=== PATIENT | male | born 1960 | race Two or more races ===

== ENCOUNTER 2017-01-30 11:41 | Inpatient (IN) | payer OTHER ==
[~2017-01-30] VITALS: Ht 160 cm; Wt 60.3 kg
[2017-01-30] MEDS ORDERED: LORazepam 2MG/ML-1ML VIAL IV ONE (12:00)
[2017-01-30] MEDS ORDERED: LEVETIRACETAM INJ 500 MG in SODIUM CHL 0.9% 100 ML IV ONE (12:00)
[2017-01-30 13:25] LABS: Basophils # (auto) 0 uL; Basophils % (auto) 1.4 % (0.0-2.0); Eosinophils # (auto) 0 uL; Eosinophils % (auto) 0.1 % (0.0-7.0); Hematocrit 35.6 % (41.0-53.0); Lymphocytes # (auto) 0.4 uL; Lymphocytes % (auto) 18.3 % (10.0-50.0); Mean Corpuscular Hemoglobin 31.1 pg (28.0-32.0); Mean Corpuscular Hgb Conc. 33.6 g/dL (32.0-36.0); Mean Corpuscular Volume 92.6 fL (80.0-100.0); Monocytes # (auto) 0.2 uL; Monocytes % (auto) 7.8 % (0.0-12.0); Neutrophils # (auto) 1.4 uL; Neutrophils % (auto) 72.4 % (37.0-80.0); Nucleated Red Blood Cells % 0.3 %; Platelet Count (auto) 156 10^3/uL (140-450); Red Blood Cells 3.84 10^6/uL (4.5-5.90); Red Cell Distribution Width 16.6 % (11.8-14.3)
[2017-01-30 13:45] LABS: Alanine Aminotransferase 34 U/L (16-61); Albumin 2.8 g/dL (3.4-5.0); Alkaline Phosphatase 139 U/L (45-117); Anion Gap 4 (5-15); Aspartate Aminotransferase 63 U/L (15-37); BUN/Creatinine Ratio 17.8; Bilirubin, Total 0.8 mg/dL (0.2-1.0); Blood Alcohol < 3.0 mg/dL (0-5); Blood Urea Nitrogen 8 mg/dL (7-18); Calcium 8.1 mg/dL (8.5-10.1); Carbon Dioxide 31 mmol/L (21-32); Chloride 102 mmol/L (98-107); GFR African American 249 mL/min; GFR Non-African American 206 mL/min; Glucose 115 mg/dL (74-106); Magnesium 2.3 mg/dL (1.6-2.6); Potassium 3.8 mmol/L (3.5-5.1); Sodium 137 mmol/L (136-145); Total Protein 8.8 g/dL (6.4-8.2)
[2017-01-30] MEDS ORDERED: MORPHINE SULF INJ 2 MG/ML SYRINGE 1ML IV PRN (14:45)
[2017-01-30] MEDS ORDERED: NITROGLYCERIN 0.4 MG SL TAB SL PRN (14:45)
[2017-01-30] MEDS ORDERED: ONDANSETRON HCL 4 MG/2 ML VIAL IV PRN (14:45)
[2017-01-30] MEDS ORDERED: FAMOTIDINE (10MG/ML) 2ML VL IV ONE (15:00)
[2017-01-30] MEDS ORDERED: PANTOPRAZOLE 40 MG/10 ML VIAL IV ONE (15:00)
[2017-01-30] MEDS ORDERED: cefTRIAXone 1GM/10ml IVPUSH 10 ML IV ONE (15:00)
[2017-01-30] MEDS ORDERED: VANCOMYCIN PER PHARMACY 0 MG IV SCH (15:00)
[2017-01-30] MEDS: SODIUM CHLORIDE 0.9% 1,000 ML IV SCH (15:31)
[2017-01-30 19:00] LABS: Alcohol, Urine < 3.0 mg/dL (0-5); Amphetamine Screen, Urine NEGATIVE (NEGATIVE); Barbiturate Scree,Urine NEGATIVE (NEGATIVE); Benzodiazephine Screen, Urine POSITIVE (NEGATIVE); Cannabinoid Screen, Urine NEGATIVE (NEGATIVE); Cocaine Screen, Urine NEGATIVE (NEGATIVE); Opiate Scree,Urine POSITIVE (NEGATIVE); Phencyclidine Screen, Urine NEGATIVE (NEGATIVE)
[2017-01-30] MEDS ORDERED: VANCOMYCIN 750 MG in SODIUM CHL 0.9% 250 ML IV SCH (20:00)
[2017-01-30 22:00] VITALS: BP 134/78
[2017-01-30] MEDS ORDERED: LEVETIRACETAM IV SCH (22:00)
[2017-01-30] MEDS ORDERED: LEVETIRACETAM INJ 500 MG in SODIUM CHL 0.9% 100 ML IV SCH (22:00)
[2017-01-30] MEDS ORDERED: SODIUM CHL 0.9% IV SCH (22:00)
[2017-01-31] MEDS: SODIUM CHLORIDE 0.9% 1,000 ML IV SCH ×2 (04:40→07:18)
[2017-01-31 05:00] VITALS: BP 149/80
[2017-01-31 06:22] LABS: Basophils # (auto) 0.1 uL; Basophils % (auto) 1.4 % (0.0-2.0); Eosinophils # (auto) 0 uL; Eosinophils % (auto) 0.1 % (0.0-7.0); Hematocrit 34.2 % (41.0-53.0); Hemoglobin 11.7 g/dL (13.5-17.5); Lymphocytes # (auto) 0.5 uL; Mean Corpuscular Hemoglobin 31.4 pg (28.0-32.0); Mean Corpuscular Hgb Conc. 34.1 g/dL (32.0-36.0); Mean Corpuscular Volume 92.1 fL (80.0-100.0); Monocytes # (auto) 0.2 uL; Monocytes % (auto) 3.7 % (0.0-12.0); Neutrophils # (auto) 3.7 uL; Neutrophils % (auto) 82.8 % (37.0-80.0); Nucleated Red Blood Cells % 0.2 %; Platelet Count (auto) 130 10^3/uL (140-450); Red Blood Cells 3.71 10^6/uL (4.5-5.90); Red Cell Distribution Width 16.7 % (11.8-14.3); White Blood Cell 4.5 10^3/uL (4.4-10.8)
[2017-01-31 06:49] LABS: Albumin 2.7 g/dL (3.4-5.0); BUN/Creatinine Ratio 29.7; Bilirubin, Total 1.2 mg/dL (0.2-1.0); Calcium 8.3 mg/dL (8.5-10.1); Potassium 3.3 mmol/L (3.5-5.1); Total Protein 8.6 g/dL (6.4-8.2)
[2017-01-31] MEDS ORDERED: LEVETIRACETAM INJ 1,000 MG in SODIUM CHL 0.9% 100 ML IV ONE ×2 (08:15→10:00)
[2017-01-31 08:34] LABS: Urine Bacteria NONE SEEN /hpf (None Seen); Urine Blood TRACE /uL (Negative); Urine Mucus FEW (None Seen); Urine Specific Gravity 1.021 (1.001-1.035); Urine WBC 1 /hpf (0 - 3)
[2017-01-31 09:00] VITALS: BP 150/84
[2017-01-31] MEDS ORDERED: VANCOMYCIN 500 MG in D5W 5% 100 ML IV SCH (09:00)
[2017-01-31] MEDS: FAMOTIDINE (10MG/ML) 2ML VL IV SCH (09:55)
[2017-01-31] MEDS: PANTOPRAZOLE 40 MG/10 ML VIAL IV SCH (09:55)
[2017-01-31] MEDS: FOLIC ACID 1 MG TAB PEG SCH (09:57)
[2017-01-31] MEDS: cefTRIAXone 1GM/10ml IVPUSH 10 ML IV SCH (12:40)
[2017-01-31 13:00] VITALS: BP 141/74
[2017-01-31] MEDS ORDERED: FOLI1TAB6 PEG (13:14)
[2017-01-31] MEDS ORDERED: LEVO50TA7 PO (13:14)
[2017-01-31] MEDS ORDERED: KEP500T PEG (13:14)
[2017-01-31 17:00] VITALS: BP 135/87
[2017-01-31] MEDS: Isosource 1.5 Cal 1 Liter GT SCH (17:16)
[2017-01-31 21:30] VITALS: BP 141/62
[2017-01-31] MEDS: SODIUM CHL 0.9% IV SCH (21:35)
[2017-01-31] MEDS: LEVETIRACETAM IV SCH (21:35)
[2017-02-01] VITALS (51 sets, daily range): BP systolic 80–177; BP diastolic 50–99
[2017-02-01] MEDS ORDERED: ETOMIDATE (2MG/ML) 20ML VIAL IV ONE (04:08)
[2017-02-01] MEDS ORDERED: SUCCINYLCHOLINE CHLORIDE 20 MG/ML 10ML VIAL IV ONE (04:08)
[2017-02-01] MEDS ORDERED: MIDAZOLAM DRIP 50 mg/50mL 50 ML IV ONE ×2 (04:25→06:35)
[2017-02-01] MEDS: MIDAZOLAM DRIP 50 mg/50mL 50 ML IV SCH ×4 (04:38→20:10)
[2017-02-01 06:43] LABS: Potassium 3.1 mmol/L (3.5-5.1)
[2017-02-01 08:02] LABS: Basophils # (auto) 0 uL; Basophils % (auto) 0.1 % (0.0-2.0); Eosinophils # (auto) 0 uL; Eosinophils % (auto) 0.1 % (0.0-7.0); Hematocrit 40.9 % (41.0-53.0); Hemoglobin 14.2 g/dL (13.5-17.5); Lymphocytes # (auto) 1.4 uL; Lymphocytes % (auto) 18.9 % (10.0-50.0); Mean Corpuscular Hemoglobin 31.6 pg (28.0-32.0); Mean Corpuscular Hgb Conc. 34.8 g/dL (32.0-36.0); Mean Corpuscular Volume 90.8 fL (80.0-100.0); Monocytes # (auto) 0.4 uL; Monocytes % (auto) 5.9 % (0.0-12.0); Neutrophils # (auto) 5.6 uL; Nucleated Red Blood Cells % 0.7 %; Platelet Count (auto) 134 10^3/uL (140-450); Red Cell Distribution Width 16.2 % (11.8-14.3); White Blood Cell 7.5 10^3/uL (4.4-10.8)
[2017-02-01] MEDS: PANTOPRAZOLE 40 MG/10 ML VIAL IV SCH (09:56)
[2017-02-01] MEDS: FOLIC ACID 1 MG TAB PEG SCH (09:57)
[2017-02-01] MEDS: FAMOTIDINE (10MG/ML) 2ML VL IV SCH (09:57)
[2017-02-01] MEDS: cefTRIAXone 1GM/10ml IVPUSH 10 ML IV SCH (09:57)
[2017-02-01] MEDS: SODIUM CHL 0.9% IV SCH ×2 (11:42→22:10)
[2017-02-01] MEDS: LEVETIRACETAM IV SCH ×2 (11:42→22:10)
[2017-02-01] MEDS ORDERED: POTASSIUM CHLORIDE 40 MEQ, LIDOCAINE 1% (LOCAL ANESTH.) 4 ML in SODIUM CHL 0.9% 100 ML IV ONE (16:15)
[2017-02-01] MEDS: LACOSAMIDE 200 mg/20ml VIAL IV SCH ×2 (16:20→23:46)
[2017-02-01] MEDS: MORPHINE SULF INJ 2 MG/ML SYRINGE 1ML IV PRN (16:23)
[2017-02-01] MEDS: SODIUM CHLORIDE 0.9% 1,000 ML IV SCH (16:38)
[2017-02-01] MEDS: NOREPINEPHRINE 8 MG/250ML KIT 250 ML IV SCH (19:45)
[2017-02-01] MEDS ORDERED: SODIUM CHLORIDE 0.9% 500 ML IV ONE (19:45)
[2017-02-02] VITALS (73 sets, daily range): BP systolic 0–140; BP diastolic 0–87
[2017-02-02] MEDS: MIDAZOLAM DRIP 50 mg/50mL 50 ML IV SCH ×6 (00:13→21:26)
[2017-02-02] MEDS: MORPHINE SULF INJ 2 MG/ML SYRINGE 1ML IV PRN (02:23)
[2017-02-02 04:15] LABS: Albumin 2.2 g/dL (3.4-5.0); BUN/Creatinine Ratio 28.8; Bilirubin, Total 0.7 mg/dL (0.2-1.0); Potassium 4.2 mmol/L (3.5-5.1); Total Protein 7.7 g/dL (6.4-8.2)
[2017-02-02] MEDS: fentaNYL Drip 2500mCg/250mlNS 250 ML IV SCH (05:10)
[2017-02-02] MEDS: cefTRIAXone 1GM/10ml IVPUSH 10 ML IV SCH (09:36)
[2017-02-02] MEDS: LACOSAMIDE 200 mg/20ml VIAL IV SCH ×2 (09:36→22:00)
[2017-02-02] MEDS: FAMOTIDINE (10MG/ML) 2ML VL IV SCH (09:36)
[2017-02-02] MEDS: PANTOPRAZOLE 40 MG/10 ML VIAL IV SCH (09:36)
[2017-02-02] MEDS: SODIUM CHLORIDE 0.9% 1,000 ML IV SCH ×2 (09:36→21:25)
[2017-02-02] MEDS: FOLIC ACID 1 MG TAB PEG SCH (09:37)
[2017-02-02 09:41] LABS: Hematocrit 31.1 % (41.0-53.0); Hemoglobin 10.4 g/dL (13.5-17.5); Mean Corpuscular Hemoglobin 30.8 pg (28.0-32.0); Mean Corpuscular Hgb Conc. 33.4 g/dL (32.0-36.0); Mean Corpuscular Volume 92.3 fL (80.0-100.0); Platelet Count (auto) 157 10^3/uL (140-450); Red Blood Cells 3.36 10^6/uL (4.5-5.90); Red Cell Distribution Width 16.7 % (11.8-14.3); White Blood Cell 3.2 10^3/uL (4.4-10.8)
[2017-02-02 09:57] LABS: Band Neutrophils % (manual) 0; Basophils % (manual) 0 (0.0-2.0); Blast Cells 0; Eosinophils % (manual) 0 (0-7); Metamyelocytes % 0; Myelocytes % 0; Promyelocytes % 0; Reactive Lymphocytes 0
[2017-02-02] MEDS: LEVETIRACETAM IV SCH ×2 (11:08→22:00)
[2017-02-02] MEDS: SODIUM CHL 0.9% IV SCH ×2 (11:08→22:00)
[2017-02-02 11:14] LABS: Lymphocytes % (manual) 25 (10.0-50.0); Monocytes % (manual) 2 (0-12)
[2017-02-02] MEDS: CLINDAMYCIN 600MG IV 50 ML IV SCH ×2 (11:56→19:43)
[2017-02-02] MEDS ORDERED: LIDOCAINE 1% HCL (LOCAL ANESTH.) INJ 20ML MDV ID ONE (14:45)
[2017-02-02] MEDS: NOREPINEPHRINE 8 MG/250ML KIT 250 ML IV SCH (19:45)
[2017-02-02] MEDS: Isosource 1.5 Cal 1 Liter GT SCH (21:25)
[2017-02-02] MEDS: SODIUM CHLOR 0.9% PF (SALINE LOCK) 10ML VIAL IV SCH (22:00)
[2017-02-03] VITALS (102 sets, daily range): BP systolic 85–138; BP diastolic 57–83
[2017-02-03 00:19] LABS: INR 1.06 (0.9-1.15); Prothrombin Time 11.6 sec (9.37-12.3)
[2017-02-03] MEDS: MIDAZOLAM DRIP 50 mg/50mL 50 ML IV SCH ×3 (02:50→18:00)
[2017-02-03] MEDS: CLINDAMYCIN 600MG IV 50 ML IV SCH ×3 (04:00→19:39)
[2017-02-03 04:20] LABS: Basophils # (auto) 0 uL; Eosinophils # (auto) 0 uL; Hemoglobin 10.2 g/dL (13.5-17.5); Lymphocytes # (auto) 0.4 uL; Mean Corpuscular Hgb Conc. 34.3 g/dL (32.0-36.0); Monocytes # (auto) 0.1 uL; Neutrophils # (auto) 0.9 uL; Red Blood Cells 3.22 10^6/uL (4.5-5.90)
[2017-02-03 04:23] LABS: Basophils % (auto) 1.3 % (0.0-2.0); Eosinophils % (auto) 2.5 % (0.0-7.0); Hematocrit 29.8 % (41.0-53.0); Lymphocytes % (auto) 28.3 % (10.0-50.0); Mean Corpuscular Hemoglobin 31.7 pg (28.0-32.0); Mean Corpuscular Volume 92.6 fL (80.0-100.0); Monocytes % (auto) 5.5 % (0.0-12.0); Neutrophils % (auto) 62.4 % (37.0-80.0); Nucleated Red Blood Cells % 0.2 %; Platelet Count (auto) 121 10^3/uL (140-450); Red Cell Distribution Width 16.4 % (11.8-14.3)
[2017-02-03 04:31] LABS: White Blood Cell 1.5 10^3/uL (4.4-10.8)
[2017-02-03 04:39] LABS: Potassium 3.5 mmol/L (3.5-5.1)
[2017-02-03 04:44] LABS: BUN/Creatinine Ratio 42.9; Calcium 7.2 mg/dL (8.5-10.1)
[2017-02-03] MEDS: cefTRIAXone 1GM/10ml IVPUSH 10 ML IV SCH (09:57)
[2017-02-03] MEDS: FOLIC ACID 1 MG TAB PEG SCH (10:01)
[2017-02-03] MEDS: FAMOTIDINE (10MG/ML) 2ML VL IV SCH (10:01)
[2017-02-03] MEDS: PANTOPRAZOLE 40 MG/10 ML VIAL IV SCH (10:01)
[2017-02-03] MEDS: SODIUM CHLOR 0.9% PF (SALINE LOCK) 10ML VIAL IV SCH ×2 (10:02→21:51)
[2017-02-03] MEDS: LEVETIRACETAM IV SCH ×2 (10:26→21:51)
[2017-02-03] MEDS: LACOSAMIDE 200 mg/20ml VIAL IV SCH ×2 (10:26→21:52)
[2017-02-03] MEDS: SODIUM CHL 0.9% IV SCH ×2 (10:26→21:51)
[2017-02-03] MEDS: SODIUM CHLORIDE 0.9% 1,000 ML IV SCH (19:40)
[2017-02-03] MEDS: NOREPINEPHRINE 8 MG/250ML KIT 250 ML IV SCH (19:45)
[2017-02-03] MEDS: fentaNYL Drip 2500mCg/250mlNS 250 ML IV SCH (21:53)
[2017-02-04] VITALS (101 sets, daily range): BP systolic 52–136; BP diastolic 31–82
[2017-02-04] MEDS: CLINDAMYCIN 600MG IV 50 ML IV SCH ×3 (04:01→20:34)
[2017-02-04] MEDS: MIDAZOLAM DRIP 50 mg/50mL 50 ML IV SCH (04:01)
[2017-02-04] MEDS: FAMOTIDINE (10MG/ML) 2ML VL IV SCH (10:00)
[2017-02-04 10:06] LABS: Basophils # (auto) 0 uL; Hemoglobin 10.4 g/dL (13.5-17.5); Lymphocytes # (auto) 0.5 uL; Monocytes # (auto) 0.1 uL; Neutrophils # (auto) 0.6 uL
[2017-02-04 10:07] LABS: Basophils % (auto) 1.5 % (0.0-2.0); Eosinophils # (auto) 0 uL; Eosinophils % (auto) 3.7 % (0.0-7.0); Hematocrit 29.8 % (41.0-53.0); Lymphocytes % (auto) 41.2 % (10.0-50.0); Mean Corpuscular Hemoglobin 31.8 pg (28.0-32.0); Mean Corpuscular Hgb Conc. 34.9 g/dL (32.0-36.0); Mean Corpuscular Volume 91.1 fL (80.0-100.0); Monocytes % (auto) 8.3 % (0.0-12.0); Neutrophils % (auto) 45.3 % (37.0-80.0); Nucleated Red Blood Cells % 0.6 %; Platelet Count (auto) 120 10^3/uL (140-450); Red Blood Cells 3.27 10^6/uL (4.5-5.90); Red Cell Distribution Width 16.7 % (11.8-14.3)
[2017-02-04 10:16] LABS: White Blood Cell 1.3 10^3/uL (4.4-10.8)
[2017-02-04 10:26] LABS: Albumin 1.9 g/dL (3.4-5.0); BUN/Creatinine Ratio 32.5; Bilirubin, Total 0.4 mg/dL (0.2-1.0); Calcium 7.3 mg/dL (8.5-10.1); Potassium 3.5 mmol/L (3.5-5.1); Total Protein 6.6 g/dL (6.4-8.2)
[2017-02-04] MEDS: PANTOPRAZOLE 40 MG/10 ML VIAL IV SCH (10:50)
[2017-02-04] MEDS: SODIUM CHLOR 0.9% PF (SALINE LOCK) 10ML VIAL IV SCH ×2 (10:51→22:33)
[2017-02-04] MEDS: cefTRIAXone 1GM/10ml IVPUSH 10 ML IV SCH (10:51)
[2017-02-04] MEDS: FOLIC ACID 1 MG TAB PEG SCH (10:51)
[2017-02-04] MEDS: LACOSAMIDE 200 mg/20ml VIAL IV SCH ×2 (10:52→22:33)
[2017-02-04] MEDS: SODIUM CHLORIDE 0.9% 1,000 ML IV SCH (11:07)
[2017-02-04] MEDS: LEVETIRACETAM IV SCH ×2 (11:21→22:34)
[2017-02-04] MEDS: SODIUM CHL 0.9% IV SCH ×2 (11:21→22:34)
[2017-02-04] MEDS: NOREPINEPHRINE 8 MG/250ML KIT 250 ML IV SCH (19:45)
[2017-02-04] MEDS: PROPOFOL 100 ML IV SCH (20:34)
[2017-02-04] MEDS: fentaNYL Drip 2500mCg/250mlNS 250 ML IV SCH (22:00)
[2017-02-05] VITALS (64 sets, daily range): BP systolic 85–155; BP diastolic 45–97
[2017-02-05] MEDS: SODIUM CHLORIDE 0.9% 1,000 ML IV SCH ×2 (03:58→19:15)
[2017-02-05] MEDS: MIDAZOLAM DRIP 50 mg/50mL 50 ML IV SCH (04:24)
[2017-02-05] MEDS: CLINDAMYCIN 600MG IV 50 ML IV SCH ×3 (04:50→20:38)
[2017-02-05 07:10] LABS: Basophils # (auto) 0 uL; Eosinophils # (auto) 0.1 uL; Hematocrit 28.4 % (41.0-53.0); Hemoglobin 9.8 g/dL (13.5-17.5); Lymphocytes # (auto) 0.5 uL; Monocytes # (auto) 0.1 uL; Neutrophils # (auto) 0.4 uL
[2017-02-05 07:12] LABS: Basophils % (auto) 1.7 % (0.0-2.0); Eosinophils % (auto) 5.5 % (0.0-7.0); Lymphocytes % (auto) 46.2 % (10.0-50.0); Mean Corpuscular Hemoglobin 31.5 pg (28.0-32.0); Mean Corpuscular Hgb Conc. 34.3 g/dL (32.0-36.0); Mean Corpuscular Volume 91.8 fL (80.0-100.0); Monocytes % (auto) 10.1 % (0.0-12.0); Neutrophils % (auto) 36.5 % (37.0-80.0); Nucleated Red Blood Cells % 0.5 %; Platelet Count (auto) 136 10^3/uL (140-450); Red Blood Cells 3.09 10^6/uL (4.5-5.90); Red Cell Distribution Width 16.3 % (11.8-14.3)
[2017-02-05 07:28] LABS: Albumin 1.9 g/dL (3.4-5.0); BUN/Creatinine Ratio 28.9; Calcium 7.7 mg/dL (8.5-10.1); Potassium 3.4 mmol/L (3.5-5.1)
[2017-02-05 07:31] LABS: Bilirubin, Total 0.4 mg/dL (0.2-1.0); Total Protein 6.7 g/dL (6.4-8.2); White Blood Cell 1.1 10^3/uL (4.4-10.8)
[2017-02-05] MEDS: cefTRIAXone 1GM/10ml IVPUSH 10 ML IV SCH (09:03)
[2017-02-05] MEDS: SODIUM CHLOR 0.9% PF (SALINE LOCK) 10ML VIAL IV SCH ×2 (10:00→21:37)
[2017-02-05] MEDS: FOLIC ACID 1 MG TAB PEG SCH (10:01)
[2017-02-05] MEDS: PANTOPRAZOLE 40 MG/10 ML VIAL IV SCH (10:01)
[2017-02-05] MEDS: FAMOTIDINE (10MG/ML) 2ML VL IV SCH (10:01)
[2017-02-05] MEDS: SODIUM CHL 0.9% IV SCH ×2 (10:35→21:38)
[2017-02-05] MEDS: LACOSAMIDE 200 mg/20ml VIAL IV SCH ×2 (10:35→21:38)
[2017-02-05] MEDS: LEVETIRACETAM IV SCH ×2 (10:35→21:38)
[2017-02-05] MEDS: PROPOFOL 100 ML IV SCH (16:51)
[2017-02-05] MEDS: NOREPINEPHRINE 8 MG/250ML KIT 250 ML IV SCH (16:51)
[2017-02-06] MEDS: CLINDAMYCIN 600MG IV 50 ML IV SCH (04:25)
[2017-02-06 05:10] VITALS: BP 107/69
[2017-02-06 09:00] VITALS: BP 118/74
[2017-02-06] MEDS: LACOSAMIDE 200 mg/20ml VIAL IV SCH ×2 (09:40→21:54)
[2017-02-06] MEDS: FAMOTIDINE (10MG/ML) 2ML VL IV SCH (09:42)
[2017-02-06] MEDS: cefTRIAXone 1GM/10ml IVPUSH 10 ML IV SCH (09:42)
[2017-02-06] MEDS: PANTOPRAZOLE 40 MG/10 ML VIAL IV SCH (09:42)
[2017-02-06] MEDS: SODIUM CHLOR 0.9% PF (SALINE LOCK) 10ML VIAL IV SCH ×2 (09:43→21:54)
[2017-02-06] MEDS: FOLIC ACID 1 MG TAB PEG SCH (09:43)
[2017-02-06] MEDS ORDERED: POTASSIUM CHL 10% (20 MEQ/15ML) 15ml ORAL SOLN GT ONE (10:15)
[2017-02-06] MEDS: LEVETIRACETAM IV SCH ×2 (10:57→21:53)
[2017-02-06] MEDS: SODIUM CHL 0.9% IV SCH ×2 (10:57→21:53)
[2017-02-06 13:00] VITALS: BP 147/95
[2017-02-06] MEDS ORDERED: FILGRASTIM 300 MCG INJ VIAL SC SCH (13:15)
[2017-02-06] MEDS: SODIUM CHLORIDE 0.9% 1,000 ML IV SCH (15:49)
[2017-02-06 17:00] VITALS: BP 135/78
[2017-02-06] MEDS: PRO-STAT 64 30ML PO SCH (18:00)
[2017-02-06 22:00] VITALS: BP 149/84
[2017-02-07 05:00] VITALS: BP 145/92
[2017-02-07 05:28] LABS: Basophils # (auto) 0.1 uL; Basophils % (auto) 1.1 % (0.0-2.0); Eosinophils # (auto) 0 uL; Hematocrit 36.3 % (41.0-53.0); Hemoglobin 12.4 g/dL (13.5-17.5); Lymphocytes # (auto) 0.6 uL; Lymphocytes % (auto) 5.5 % (10.0-50.0); Mean Corpuscular Hemoglobin 30.9 pg (28.0-32.0); Mean Corpuscular Hgb Conc. 34.2 g/dL (32.0-36.0); Mean Corpuscular Volume 90.2 fL (80.0-100.0); Monocytes # (auto) 0.3 uL; Monocytes % (auto) 2.2 % (0.0-12.0); Neutrophils # (auto) 10.4 uL; Neutrophils % (auto) 91.2 % (37.0-80.0); Nucleated Red Blood Cells % 0.1 %; Platelet Count (auto) 174 10^3/uL (140-450); Red Blood Cells 4.02 10^6/uL (4.5-5.90); Red Cell Distribution Width 15.9 % (11.8-14.3); White Blood Cell 11.4 10^3/uL (4.4-10.8)
[2017-02-07] MEDS: SODIUM CHLORIDE 0.9% 1,000 ML IV SCH ×2 (05:39→21:56)
[2017-02-07 05:51] LABS: Potassium 3.4 mmol/L (3.5-5.1)
[2017-02-07] MEDS: PRO-STAT 64 30ML PO SCH ×2 (08:00→18:00)
[2017-02-07 08:30] VITALS: BP 149/91
[2017-02-07] MEDS: LORazepam 2MG/ML-1ML VIAL IV PRN ×2 (09:25→19:54)
[2017-02-07] MEDS: cefTRIAXone 1GM/10ml IVPUSH 10 ML IV SCH (10:12)
[2017-02-07] MEDS: FAMOTIDINE (10MG/ML) 2ML VL IV SCH (10:13)
[2017-02-07] MEDS: PANTOPRAZOLE 40 MG/10 ML VIAL IV SCH (10:13)
[2017-02-07] MEDS: SODIUM CHLOR 0.9% PF (SALINE LOCK) 10ML VIAL IV SCH ×2 (10:14→21:56)
[2017-02-07] MEDS ORDERED: FUROSEMIDE 40 MG/4 ML VIAL IV ONE (10:15)
[2017-02-07] MEDS: FOLIC ACID 1 MG TAB PEG SCH (10:16)
[2017-02-07] MEDS: LEVETIRACETAM IV SCH (10:41)
[2017-02-07] MEDS: SODIUM CHL 0.9% IV SCH (10:41)
[2017-02-07] MEDS: LACOSAMIDE 200 mg/20ml VIAL IV SCH ×2 (10:42→21:56)
[2017-02-07 13:00] VITALS: BP 126/73
[2017-02-07 17:34] VITALS: BP 129/89
[2017-02-07] MEDS: LEVETIRACETAM INJ 1,500 MG in D5W 5% 100 ML IV SCH (21:56)
[2017-02-07 22:00] VITALS: BP 136/100
[2017-02-08 05:00] VITALS: BP 154/102
[2017-02-08 05:47] LABS: Basophils # (auto) 0.1 uL; Basophils % (auto) 0.9 % (0.0-2.0); Eosinophils # (auto) 0 uL; Hematocrit 40.1 % (41.0-53.0); Hemoglobin 13.6 g/dL (13.5-17.5); Lymphocytes # (auto) 0.8 uL; Lymphocytes % (auto) 6.6 % (10.0-50.0); Mean Corpuscular Hemoglobin 30.9 pg (28.0-32.0); Mean Corpuscular Volume 90.9 fL (80.0-100.0); Monocytes # (auto) 0.4 uL; Monocytes % (auto) 3.4 % (0.0-12.0); Neutrophils # (auto) 10.3 uL; Neutrophils % (auto) 89.1 % (37.0-80.0); Platelet Count (auto) 173 10^3/uL (140-450); Red Blood Cells 4.42 10^6/uL (4.5-5.90); White Blood Cell 11.5 10^3/uL (4.4-10.8)
[2017-02-08 06:11] LABS: Potassium 3.7 mmol/L (3.5-5.1)
[2017-02-08 06:16] LABS: BUN/Creatinine Ratio 33.3; Calcium 8.4 mg/dL (8.5-10.1)
[2017-02-08] MEDS: PRO-STAT 64 30ML PO SCH ×2 (07:53→17:33)
[2017-02-08 08:00] VITALS: BP 143/97
[2017-02-08] MEDS: LEVETIRACETAM INJ 1,500 MG in D5W 5% 100 ML IV SCH ×2 (11:09→14:57)
[2017-02-08] MEDS: cefTRIAXone 1GM/10ml IVPUSH 10 ML IV SCH (11:09)
[2017-02-08] MEDS: SODIUM CHLOR 0.9% PF (SALINE LOCK) 10ML VIAL IV SCH ×2 (11:10→22:53)
[2017-02-08] MEDS: LACOSAMIDE 200 mg/20ml VIAL IV SCH ×2 (11:10→22:53)
[2017-02-08] MEDS: FAMOTIDINE (10MG/ML) 2ML VL IV SCH (11:10)
[2017-02-08] MEDS: PANTOPRAZOLE 40 MG/10 ML VIAL IV SCH (11:10)
[2017-02-08] MEDS: FOLIC ACID 1 MG TAB PEG SCH (11:11)
[2017-02-08 12:00] VITALS: BP 141/99
[2017-02-08] MEDS: SODIUM CHLORIDE 0.9% 1,000 ML IV SCH (15:35)
[2017-02-08 17:17] VITALS: BP 145/104
[2017-02-08] MEDS: MORPHINE SULF INJ 2 MG/ML SYRINGE 1ML IV PRN ×2 (17:39→23:26)
[2017-02-08] MEDS ORDERED: PHENYTOIN IV DILANTIN 500 MG in SODIUM CHL 0.9% 100 ML IV ONE (19:45)
[2017-02-08 22:00] VITALS: BP 144/97
[2017-02-09] MEDS ORDERED: LEVETIRACETAM 500 MG/5ML INJ IV ONE (00:09)
[2017-02-09] MEDS: LEVETIRACETAM INJ 1,500 MG in D5W 5% 100 ML IV SCH ×3 (01:18→23:31)
[2017-02-09 05:00] VITALS: BP 137/95
[2017-02-09] MEDS: PRO-STAT 64 30ML PO SCH ×2 (08:00→18:00)
[2017-02-09 09:00] VITALS: BP 144/92
[2017-02-09 09:17] LABS: Hepatitis B Surface Antigen Negative (Negative)
[2017-02-09 09:41] LABS: Hepatitis B Core IgM Negative
[2017-02-09 09:43] LABS: Hepatitis A Ab IgM Negative
[2017-02-09 09:52] LABS: Hepatitis C Antibody Positive (Negative)
[2017-02-09] MEDS: PANTOPRAZOLE 40 MG/10 ML VIAL IV SCH (10:02)
[2017-02-09] MEDS: FAMOTIDINE (10MG/ML) 2ML VL IV SCH (10:02)
[2017-02-09] MEDS: FOLIC ACID 1 MG TAB PEG SCH (10:02)
[2017-02-09] MEDS: LACOSAMIDE 200 mg/20ml VIAL IV SCH ×2 (10:07→22:00)
[2017-02-09] MEDS: SODIUM CHLOR 0.9% PF (SALINE LOCK) 10ML VIAL IV SCH ×2 (10:13→22:00)
[2017-02-09] MEDS: cefTRIAXone 1GM/10ml IVPUSH 10 ML IV SCH (10:14)
[2017-02-09 13:00] VITALS: BP 120/88
[2017-02-09] MEDS: Isosource 1.5 Cal 1 Liter GT SCH (15:00)
[2017-02-09] MEDS: LORazepam 2MG/ML-1ML VIAL IV PRN (16:58)
[2017-02-09 17:00] VITALS: BP 162/101
[2017-02-09] MEDS: MORPHINE SULF INJ 2 MG/ML SYRINGE 1ML IV PRN ×2 (17:48→22:14)
[2017-02-09] MEDS: FREE WATER GT SCH (17:49)
[2017-02-09] MEDS ORDERED: PHENYTOIN IV DILANTIN 500 MG in SODIUM CHL 0.9% 100 ML IV ONE (21:00)
[2017-02-09 21:58] VITALS: BP 135/97
[2017-02-09] MEDS: PHENYTOIN SODIUM 100 MG CAP PO SCH (23:32)
[2017-02-10] MEDS: FREE WATER GT SCH ×4 (00:07→18:34)
[2017-02-10 05:14] VITALS: BP 130/48
[2017-02-10 06:08] LABS: Basophils # (auto) 0 uL; Basophils % (auto) 0.2 % (0.0-2.0); Eosinophils # (auto) 0 uL; Hematocrit 36.4 % (41.0-53.0); Hemoglobin 12.4 g/dL (13.5-17.5); Lymphocytes # (auto) 0.7 uL; Lymphocytes % (auto) 6.8 % (10.0-50.0); Mean Corpuscular Hemoglobin 30.8 pg (28.0-32.0); Mean Corpuscular Hgb Conc. 33.9 g/dL (32.0-36.0); Mean Corpuscular Volume 90.7 fL (80.0-100.0); Monocytes # (auto) 0.5 uL; Monocytes % (auto) 5.3 % (0.0-12.0); Neutrophils # (auto) 8.6 uL; Neutrophils % (auto) 87.7 % (37.0-80.0); Platelet Count (auto) 180 10^3/uL (140-450); Red Blood Cells 4.02 10^6/uL (4.5-5.90); Red Cell Distribution Width 15.9 % (11.8-14.3); White Blood Cell 9.8 10^3/uL (4.4-10.8)
[2017-02-10 06:19] LABS: BUN/Creatinine Ratio 66.7; Calcium 7.5 mg/dL (8.5-10.1); Potassium 3.4 mmol/L (3.5-5.1)
[2017-02-10] MEDS: ALBUTEROL SULF 2.5 MG/0.5ML(0.5%) NEB SOLN NEB SCH ×3 (06:20→18:37)
[2017-02-10 08:44] VITALS: BP 129/85
[2017-02-10] MEDS ORDERED: MORPHINE SULFATE 4 MG/ML SYR/VIAL IV PRN (11:00)
[2017-02-10] MEDS: cefTRIAXone 1GM/10ml IVPUSH 10 ML IV SCH (11:07)
[2017-02-10] MEDS: FAMOTIDINE (10MG/ML) 2ML VL IV SCH (11:08)
[2017-02-10] MEDS: PANTOPRAZOLE 40 MG/10 ML VIAL IV SCH (11:08)
[2017-02-10] MEDS: SODIUM CHLOR 0.9% PF (SALINE LOCK) 10ML VIAL IV SCH ×2 (11:08→21:55)
[2017-02-10] MEDS: FOLIC ACID 1 MG TAB PEG SCH (11:09)
[2017-02-10 13:42] VITALS: BP 117/70
[2017-02-10] MEDS: LACOSAMIDE 200 mg/20ml VIAL IV SCH ×2 (14:43→21:56)
[2017-02-10] MEDS: PRO-STAT 64 30ML PO SCH ×2 (14:44→18:34)
[2017-02-10 16:28] VITALS: BP 117/88
[2017-02-10] MEDS: LEVETIRACETAM INJ 1,500 MG in D5W 5% 100 ML IV SCH ×2 (16:37→22:05)
[2017-02-10] MEDS: PHENYTOIN SODIUM 100 MG CAP PO SCH (21:55)
[2017-02-10 22:00] VITALS: BP 115/75
[2017-02-11] MEDS: FREE WATER GT SCH ×5 (00:18→23:53)
[2017-02-11] MEDS: Isosource 1.5 Cal 1 Liter GT SCH ×2 (02:26→20:00)
[2017-02-11] MEDS: MORPHINE SULFATE 4 MG/ML SYR/VIAL IV PRN (02:27)
[2017-02-11 05:28] VITALS: BP 111/73
[2017-02-11] MEDS: ALBUTEROL SULF 2.5 MG/0.5ML(0.5%) NEB SOLN NEB SCH ×4 (05:44→19:51)
[2017-02-11] MEDS: PRO-STAT 64 30ML PO SCH ×2 (08:00→18:00)
[2017-02-11 08:35] VITALS: BP 121/72
[2017-02-11] MEDS: FAMOTIDINE (10MG/ML) 2ML VL IV SCH (10:36)
[2017-02-11] MEDS: PANTOPRAZOLE 40 MG/10 ML VIAL IV SCH (10:36)
[2017-02-11] MEDS: LEVETIRACETAM INJ 1,500 MG in D5W 5% 100 ML IV SCH (10:36)
[2017-02-11] MEDS: cefTRIAXone 1GM/10ml IVPUSH 10 ML IV SCH (10:38)
[2017-02-11] MEDS: FOLIC ACID 1 MG TAB PEG SCH (10:39)
[2017-02-11] MEDS: SODIUM CHLOR 0.9% PF (SALINE LOCK) 10ML VIAL IV SCH ×2 (10:39→21:48)
[2017-02-11 12:35] VITALS: BP 122/83
[2017-02-11 16:49] VITALS: BP 116/80
[2017-02-11] MEDS: LACOSAMIDE 50 MG TAB PEG SCH (21:48)
[2017-02-11] MEDS: PHENYTOIN SODIUM 100 MG CAP PO SCH (21:53)
[2017-02-11] MEDS ORDERED: LEVETIRACETAM 500 MG/5ML ORAL SOLN UD PO SCH (22:00)
[2017-02-11 22:37] VITALS: BP 135/82
[2017-02-12 05:02] VITALS: BP 129/87
[2017-02-12] MEDS: FREE WATER GT SCH ×3 (06:12→18:06)
[2017-02-12] MEDS: ALBUTEROL SULF 2.5 MG/0.5ML(0.5%) NEB SOLN NEB SCH ×4 (06:20→19:16)
[2017-02-12] MEDS: PRO-STAT 64 30ML PO SCH (08:00)
[2017-02-12 08:08] VITALS: BP 123/79
[2017-02-12] MEDS: PRO-STAT 64 30ML PEG SCH ×2 (10:00→18:00)
[2017-02-12] MEDS: PANTOPRAZOLE 40 MG/10 ML VIAL IV SCH (10:01)
[2017-02-12] MEDS: FOLIC ACID 1 MG TAB PEG SCH (10:01)
[2017-02-12] MEDS: LACOSAMIDE 50 MG TAB PEG SCH ×2 (10:01→21:53)
[2017-02-12] MEDS: FAMOTIDINE (10MG/ML) 2ML VL IV SCH (10:01)
[2017-02-12] MEDS: LEVETIRACETAM 500 MG/5ML ORAL SOLN UD PEG SCH ×2 (10:01→21:53)
[2017-02-12] MEDS: cefTRIAXone 1GM/10ml IVPUSH 10 ML IV SCH (10:01)
[2017-02-12] MEDS: OMEPRAZOLE 20MG/10ML ORAL SUSP GT SCH (10:02)
[2017-02-12] MEDS: SODIUM CHLOR 0.9% PF (SALINE LOCK) 10ML VIAL IV SCH ×2 (10:02→21:40)
[2017-02-12 13:04] VITALS: BP 113/79
[2017-02-12] MEDS ORDERED: VANCOMYCIN PER PHARMACY 0 MG IV SCH (13:30)
[2017-02-12] MEDS ORDERED: PIPERACILLIN-TAZOB 3.375GM 50 ML IV ONE (13:30)
[2017-02-12] MEDS ORDERED: AZITHROMYCIN 500MG/ 250ML 250 ML IV ONE (13:30)
[2017-02-12 15:08] LABS: BUN/Creatinine Ratio 80.6; Bilirubin, Total 0.3 mg/dL (0.2-1.0); Calcium 7.8 mg/dL (8.5-10.1); Potassium 3.7 mmol/L (3.5-5.1); Total Protein 7.2 g/dL (6.4-8.2)
[2017-02-12] MEDS: VANCOMYCIN 500 MG in D5W 5% 100 ML IV SCH (15:25)
[2017-02-12 17:31] VITALS: BP 107/74
[2017-02-12] MEDS: PIPERACILLIN-TAZOB 3.375GM 50 ML IV SCH (21:51)
[2017-02-12] MEDS: PHENYTOIN 100 MG/4 ML SUSP PEG SCH (21:53)
[2017-02-12 22:07] VITALS: BP 118/70
[2017-02-13] VITALS (7 sets, daily range): BP systolic 122–138; BP diastolic 77–82
[2017-02-13] MEDS: FREE WATER GT SCH ×4 (00:22→18:08)
[2017-02-13] MEDS: VANCOMYCIN 500 MG in D5W 5% 100 ML IV SCH ×2 (03:26→17:56)
[2017-02-13] MEDS: PIPERACILLIN-TAZOB 3.375GM 50 ML IV SCH ×4 (04:00→22:00)
[2017-02-13] MEDS: ALBUTEROL SULF 2.5 MG/0.5ML(0.5%) NEB SOLN NEB SCH ×4 (06:31→18:33)
[2017-02-13 07:22] LABS: Albumin 1.8 g/dL (3.4-5.0); BUN/Creatinine Ratio 68.6; Bilirubin, Total 0.3 mg/dL (0.2-1.0); Calcium 7.6 mg/dL (8.5-10.1); Potassium 3.9 mmol/L (3.5-5.1); Total Protein 6.9 g/dL (6.4-8.2)
[2017-02-13] MEDS: PRO-STAT 64 30ML PEG SCH ×2 (08:00→18:00)
[2017-02-13] MEDS: PANTOPRAZOLE 40 MG/10 ML VIAL IV SCH (10:21)
[2017-02-13] MEDS: LEVETIRACETAM 500 MG/5ML ORAL SOLN UD PEG SCH ×2 (10:23→22:45)
[2017-02-13] MEDS: OMEPRAZOLE 20MG/10ML ORAL SUSP GT SCH (10:23)
[2017-02-13] MEDS: FOLIC ACID 1 MG TAB PEG SCH (10:23)
[2017-02-13] MEDS: LACOSAMIDE 50 MG TAB PEG SCH ×2 (10:23→22:45)
[2017-02-13] MEDS: AZITHROMYCIN 500MG/ 250ML 250 ML IV SCH (10:24)
[2017-02-13] MEDS: FAMOTIDINE (10MG/ML) 2ML VL IV SCH (10:25)
[2017-02-13] MEDS: SODIUM CHLOR 0.9% PF (SALINE LOCK) 10ML VIAL IV SCH ×2 (10:25→23:20)
[2017-02-13] MEDS: MORPHINE SULFATE 4 MG/ML SYR/VIAL IV PRN ×2 (10:25→23:20)
[2017-02-13] MEDS: PHENYTOIN 100 MG/4 ML SUSP PEG SCH (22:45)
[2017-02-14 02:40] LABS: BUN/Creatinine Ratio 41.7; Calcium 7.9 mg/dL (8.5-10.1)
[2017-02-14 02:42] LABS: Bilirubin, Total 0.4 mg/dL (0.2-1.0); Total Protein 7.1 g/dL (6.4-8.2)
[2017-02-14] MEDS: VANCOMYCIN 500 MG in D5W 5% 100 ML IV SCH (02:55)
[2017-02-14] MEDS: PIPERACILLIN-TAZOB 3.375GM 50 ML IV SCH ×4 (03:45→22:00)
[2017-02-14 04:32] VITALS: BP 127/71
[2017-02-14] MEDS: FREE WATER GT SCH ×5 (05:37→23:02)
[2017-02-14] MEDS: ALBUTEROL SULF 2.5 MG/0.5ML(0.5%) NEB SOLN NEB SCH ×4 (07:06→18:31)
[2017-02-14] MEDS: PRO-STAT 64 30ML PEG SCH ×2 (08:00→18:00)
[2017-02-14 08:59] LABS: Basophils # (auto) 0 uL; Eosinophils # (auto) 0 uL; Hemoglobin 10.5 g/dL (13.5-17.5); Lymphocytes # (auto) 0.6 uL; Monocytes # (auto) 0.1 uL
[2017-02-14 09:00] VITALS: BP 124/74
[2017-02-14 09:01] LABS: Basophils % (auto) 0.6 % (0.0-2.0); Eosinophils % (auto) 2.6 % (0.0-7.0); Hematocrit 30.9 % (41.0-53.0); Lymphocytes % (auto) 35.3 % (10.0-50.0); Mean Corpuscular Hemoglobin 30.7 pg (28.0-32.0); Mean Corpuscular Volume 90.2 fL (80.0-100.0); Monocytes % (auto) 5.7 % (0.0-12.0); Neutrophils % (auto) 55.8 % (37.0-80.0); Nucleated Red Blood Cells % 0.7 %; Platelet Count (auto) 205 10^3/uL (140-450); Red Blood Cells 3.42 10^6/uL (4.5-5.90); Red Cell Distribution Width 15.1 % (11.8-14.3)
[2017-02-14 09:09] LABS: White Blood Cell 1.7 10^3/uL (4.4-10.8)
[2017-02-14] MEDS: SODIUM CHLOR 0.9% PF (SALINE LOCK) 10ML VIAL IV SCH ×2 (10:00→22:00)
[2017-02-14] MEDS ORDERED: FILGRASTIM 300 MCG INJ VIAL SC ONE (11:15)
[2017-02-14] MEDS: OMEPRAZOLE 20MG/10ML ORAL SUSP GT SCH (11:21)
[2017-02-14] MEDS: PANTOPRAZOLE 40 MG/10 ML VIAL IV SCH (11:21)
[2017-02-14] MEDS: FAMOTIDINE (10MG/ML) 2ML VL IV SCH (11:21)
[2017-02-14] MEDS: AZITHROMYCIN 500MG/ 250ML 250 ML IV SCH (11:22)
[2017-02-14] MEDS: FOLIC ACID 1 MG TAB PEG SCH (11:23)
[2017-02-14] MEDS: LEVETIRACETAM 500 MG/5ML ORAL SOLN UD PEG SCH ×2 (11:23→23:01)
[2017-02-14 12:00] VITALS: BP 110/67
[2017-02-14] MEDS: VANCOMYCIN 1GM/250ML 250 ML IV SCH (16:10)
[2017-02-14 17:20] VITALS: BP 118/72
[2017-02-14 21:36] VITALS: BP 116/72
[2017-02-14] MEDS: MORPHINE SULFATE 4 MG/ML SYR/VIAL IV PRN (23:00)
[2017-02-14] MEDS: PHENYTOIN 100 MG/4 ML SUSP PEG SCH (23:01)
[2017-02-15] MEDS: VANCOMYCIN 1GM/250ML 250 ML IV SCH ×2 (03:00→15:36)
[2017-02-15] MEDS: PIPERACILLIN-TAZOB 3.375GM 50 ML IV SCH ×4 (03:56→22:21)
[2017-02-15 05:12] VITALS: BP 97/65
[2017-02-15] MEDS: FREE WATER GT SCH ×3 (05:52→18:00)
[2017-02-15] MEDS: ALBUTEROL SULF 2.5 MG/0.5ML(0.5%) NEB SOLN NEB SCH ×4 (06:00→18:47)
[2017-02-15 06:16] LABS: Basophils # (auto) 0.1 uL; Eosinophils # (auto) 0 uL; Eosinophils % (auto) 0.3 % (0.0-7.0); Hemoglobin 11.5 g/dL (13.5-17.5); Lymphocytes % (auto) 8.3 % (10.0-50.0); Mean Corpuscular Hemoglobin 30.6 pg (28.0-32.0); Mean Corpuscular Hgb Conc. 33.8 g/dL (32.0-36.0); Mean Corpuscular Volume 90.6 fL (80.0-100.0); Monocytes # (auto) 0.3 uL; Monocytes % (auto) 2.5 % (0.0-12.0); Neutrophils # (auto) 10.8 uL; Neutrophils % (auto) 87.9 % (37.0-80.0); Nucleated Red Blood Cells % 0.3 %; Platelet Count (auto) 199 10^3/uL (140-450); Red Blood Cells 3.75 10^6/uL (4.5-5.90); Red Cell Distribution Width 15.2 % (11.8-14.3); White Blood Cell 12.3 10^3/uL (4.4-10.8)
[2017-02-15] MEDS: PRO-STAT 64 30ML PEG SCH ×2 (08:00→18:00)
[2017-02-15 09:14] VITALS: BP 105/65
[2017-02-15] MEDS: SODIUM CHLOR 0.9% PF (SALINE LOCK) 10ML VIAL IV SCH ×2 (10:00→22:21)
[2017-02-15] MEDS ORDERED: FILGRASTIM 300 MCG INJ VIAL SC SCH (10:00)
[2017-02-15] MEDS: OMEPRAZOLE 20MG/10ML ORAL SUSP GT SCH (12:33)
[2017-02-15] MEDS: FAMOTIDINE (10MG/ML) 2ML VL IV SCH (12:33)
[2017-02-15] MEDS: FOLIC ACID 1 MG TAB PEG SCH (12:34)
[2017-02-15] MEDS: AZITHROMYCIN 500MG/ 250ML 250 ML IV SCH (12:34)
[2017-02-15] MEDS: LEVETIRACETAM 500 MG/5ML ORAL SOLN UD PEG SCH ×2 (12:35→22:21)
[2017-02-15 12:56] VITALS: BP 100/65
[2017-02-15 16:42] LABS: Urine Amorphous Crystal FEW /hpf (None Seen); Urine Bacteria NONE SEEN /hpf (None Seen); Urine Blood TRACE /uL (Negative); Urine Specific Gravity 1.017 (1.001-1.035); Urine WBC 6 /hpf (0 - 3)
[2017-02-15 17:00] VITALS: BP 94/65
[2017-02-15] MEDS: PHENYTOIN 100 MG/4 ML SUSP PEG SCH (22:21)
[2017-02-15 22:23] VITALS: BP 114/63
[2017-02-15 22:25] VITALS: BP 114/63
[2017-02-16 03:05] LABS: Basophils # (auto) 0 uL; Basophils % (auto) 0.8 % (0.0-2.0); Eosinophils # (auto) 0.1 uL; Eosinophils % (auto) 1.3 % (0.0-7.0); Hematocrit 27.9 % (41.0-53.0); Hemoglobin 9.5 g/dL (13.5-17.5); Lymphocytes # (auto) 0.7 uL; Lymphocytes % (auto) 16.8 % (10.0-50.0); Mean Corpuscular Hemoglobin 30.9 pg (28.0-32.0); Mean Corpuscular Volume 90.7 fL (80.0-100.0); Monocytes # (auto) 0.2 uL; Monocytes % (auto) 3.9 % (0.0-12.0); Neutrophils # (auto) 3.3 uL; Neutrophils % (auto) 77.2 % (37.0-80.0); Nucleated Red Blood Cells % 0.1 %; Platelet Count (auto) 226 10^3/uL (140-450); Red Blood Cells 3.08 10^6/uL (4.5-5.90); Red Cell Distribution Width 15.6 % (11.8-14.3); White Blood Cell 4.3 10^3/uL (4.4-10.8)
[2017-02-16] MEDS: VANCOMYCIN 1GM/250ML 250 ML IV SCH (03:39)
[2017-02-16] MEDS: PIPERACILLIN-TAZOB 3.375GM 50 ML IV SCH ×5 (04:50→22:43)
[2017-02-16 05:03] VITALS: BP 109/66
[2017-02-16] MEDS: FREE WATER GT SCH ×5 (05:15→23:27)
[2017-02-16] MEDS: ALBUTEROL SULF 2.5 MG/0.5ML(0.5%) NEB SOLN NEB SCH ×4 (05:59→18:57)
[2017-02-16] MEDS: PRO-STAT 64 30ML PEG SCH ×2 (07:43→17:37)
[2017-02-16 07:50] VITALS: BP 101/65
[2017-02-16 09:09] VITALS: BP 101/65
[2017-02-16] MEDS: FOLIC ACID 1 MG TAB PEG SCH (10:19)
[2017-02-16] MEDS: LEVETIRACETAM 500 MG/5ML ORAL SOLN UD PEG SCH ×2 (10:19→22:44)
[2017-02-16] MEDS: AZITHROMYCIN 500MG/ 250ML 250 ML IV SCH (10:19)
[2017-02-16] MEDS: SODIUM CHLOR 0.9% PF (SALINE LOCK) 10ML VIAL IV SCH ×2 (10:20→22:43)
[2017-02-16] MEDS: FAMOTIDINE (10MG/ML) 2ML VL IV SCH (10:20)
[2017-02-16] MEDS: OMEPRAZOLE 20MG/10ML ORAL SUSP GT SCH (10:20)
[2017-02-16 12:04] VITALS: BP 108/67
[2017-02-16] MEDS: VANCOMYCIN 1,250 MG in D5W 5% 250 ML IV SCH (15:36)
[2017-02-16 17:09] VITALS: BP 117/77
[2017-02-16 21:14] VITALS: BP 113/70
[2017-02-16] MEDS: PHENYTOIN 100 MG/4 ML SUSP PEG SCH (22:44)
[2017-02-16] MEDS: Isosource 1.5 Cal 1 Liter GT SCH (22:45)
[2017-02-17] MEDS: VANCOMYCIN 1,250 MG in D5W 5% 250 ML IV SCH (02:48)
[2017-02-17] MEDS: PIPERACILLIN-TAZOB 3.375GM 50 ML IV SCH ×4 (04:46→21:26)
[2017-02-17] MEDS: FREE WATER GT SCH ×3 (05:01→18:03)
[2017-02-17 05:26] VITALS: BP 107/65
[2017-02-17 06:11] LABS: Albumin 2.1 g/dL (3.4-5.0); BUN/Creatinine Ratio 40.9; Bilirubin, Total 0.5 mg/dL (0.2-1.0); Calcium 7.7 mg/dL (8.5-10.1); Potassium 3.7 mmol/L (3.5-5.1); Total Protein 7.1 g/dL (6.4-8.2)
[2017-02-17] MEDS: ALBUTEROL SULF 2.5 MG/0.5ML(0.5%) NEB SOLN NEB SCH ×4 (06:31→18:37)
[2017-02-17] MEDS: PRO-STAT 64 30ML PEG SCH ×2 (08:00→18:03)
[2017-02-17] MEDS ORDERED: PANTOPRAZOLE 40 MG TAB PO SCH (10:00)
[2017-02-17 10:03] VITALS: BP 113/74
[2017-02-17] MEDS: SODIUM CHLOR 0.9% PF (SALINE LOCK) 10ML VIAL IV SCH ×2 (10:06→21:27)
[2017-02-17] MEDS: LINEZOLID 600MG/300ML 300 ML IV SCH ×2 (10:07→21:27)
[2017-02-17] MEDS: FOLIC ACID 1 MG TAB PEG SCH (10:07)
[2017-02-17] MEDS: LEVETIRACETAM 500 MG/5ML ORAL SOLN UD PEG SCH ×2 (10:07→21:35)
[2017-02-17] MEDS: PANTOPRAZOLE 40 MG/10 ML VIAL IV SCH (11:35)
[2017-02-17 12:15] VITALS: BP 107/71
[2017-02-17] MEDS: MORPHINE SULFATE 4 MG/ML SYR/VIAL IV PRN (19:58)
[2017-02-17] MEDS: PHENYTOIN 100 MG/4 ML SUSP PEG SCH (21:27)
[2017-02-17 22:00] VITALS: BP 123/71
[2017-02-18] MEDS: FREE WATER GT SCH ×5 (00:04→23:26)
[2017-02-18] MEDS: PIPERACILLIN-TAZOB 3.375GM 50 ML IV SCH ×4 (04:13→22:00)
[2017-02-18] MEDS: MORPHINE SULFATE 4 MG/ML SYR/VIAL IV PRN ×2 (05:21→21:20)
[2017-02-18 06:01] VITALS: BP 120/72
[2017-02-18] MEDS: ALBUTEROL SULF 2.5 MG/0.5ML(0.5%) NEB SOLN NEB SCH ×4 (06:42→20:06)
[2017-02-18 09:00] VITALS: BP 125/72
[2017-02-18] MEDS: LINEZOLID 600MG/300ML 300 ML IV SCH ×2 (09:19→22:00)
[2017-02-18] MEDS: PRO-STAT 64 30ML PEG SCH ×2 (09:30→18:22)
[2017-02-18] MEDS: PANTOPRAZOLE 40 MG/10 ML VIAL IV SCH (09:30)
[2017-02-18] MEDS: FOLIC ACID 1 MG TAB PEG SCH (09:32)
[2017-02-18] MEDS: LEVETIRACETAM 500 MG/5ML ORAL SOLN UD PEG SCH ×2 (09:32→22:45)
[2017-02-18] MEDS: SODIUM CHLOR 0.9% PF (SALINE LOCK) 10ML VIAL IV SCH ×2 (09:33→22:45)
[2017-02-18 13:00] VITALS: BP 121/77
[2017-02-18 17:08] VITALS: BP 125/77
[2017-02-18 22:02] VITALS: BP 128/70
[2017-02-18] MEDS: PHENYTOIN 100 MG/4 ML SUSP PEG SCH (22:45)
[2017-02-19] MEDS: PIPERACILLIN-TAZOB 3.375GM 50 ML IV SCH ×4 (04:00→21:55)
[2017-02-19 05:11] VITALS: BP 129/78
[2017-02-19 05:25] LABS: Basophils # (auto) 0 uL; Basophils % (auto) 2.2 % (0.0-2.0); Lymphocytes # (auto) 0.6 uL; Mean Corpuscular Volume 90.1 fL (80.0-100.0); Monocytes # (auto) 0.2 uL; Monocytes % (auto) 12.2 % (0.0-12.0); Neutrophils # (auto) 0.4 uL
[2017-02-19 05:27] LABS: Eosinophils # (auto) 0.1 uL; Eosinophils % (auto) 5.1 % (0.0-7.0); Hematocrit 33.3 % (41.0-53.0); Hemoglobin 11.5 g/dL (13.5-17.5); Lymphocytes % (auto) 46.8 % (10.0-50.0); Mean Corpuscular Hgb Conc. 34.5 g/dL (32.0-36.0); Neutrophils % (auto) 33.7 % (37.0-80.0); Nucleated Red Blood Cells % 1.2 %; Platelet Count (auto) 306 10^3/uL (140-450); Red Cell Distribution Width 16.5 % (11.8-14.3)
[2017-02-19 05:32] LABS: White Blood Cell 1.3 10^3/uL (4.4-10.8)
[2017-02-19] MEDS: ALBUTEROL SULF 2.5 MG/0.5ML(0.5%) NEB SOLN NEB SCH ×4 (05:55→18:34)
[2017-02-19] MEDS: FREE WATER GT SCH ×3 (06:03→17:02)
[2017-02-19 08:21] VITALS: BP 129/78
[2017-02-19] MEDS: PRO-STAT 64 30ML PEG SCH ×2 (08:23→17:03)
[2017-02-19 09:00] VITALS: BP 122/75
[2017-02-19] MEDS: SODIUM CHLOR 0.9% PF (SALINE LOCK) 10ML VIAL IV SCH ×2 (10:00→21:55)
[2017-02-19] MEDS: LINEZOLID 600MG/300ML 300 ML IV SCH ×3 (10:00→21:55)
[2017-02-19] MEDS: PANTOPRAZOLE 40 MG/10 ML VIAL IV SCH (10:00)
[2017-02-19] MEDS: LEVETIRACETAM 500 MG/5ML ORAL SOLN UD PEG SCH ×2 (10:27→21:54)
[2017-02-19 13:00] VITALS: BP 124/80
[2017-02-19 18:02] VITALS: BP 122/78
[2017-02-19] MEDS ORDERED: MORPHINE SULFATE INJECTION 1 ML ONE (21:03)
[2017-02-19] MEDS: MORPHINE SULFATE 4 MG/ML SYR/VIAL IV PRN (21:53)
[2017-02-19] MEDS: PHENYTOIN 100 MG/4 ML SUSP PEG SCH (21:54)
[2017-02-19 22:00] VITALS: BP 121/76
[2017-02-20] MEDS: FREE WATER GT SCH ×4 (02:04→18:00)
[2017-02-20] MEDS: PIPERACILLIN-TAZOB 3.375GM 50 ML IV SCH ×4 (03:54→23:43)
[2017-02-20 05:00] VITALS: BP 103/74
[2017-02-20 08:00] VITALS: BP 119/68
[2017-02-20] MEDS: PRO-STAT 64 30ML PEG SCH ×2 (08:00→18:00)
[2017-02-20] MEDS: ALBUTEROL SULF 2.5 MG/0.5ML(0.5%) NEB SOLN NEB SCH ×4 (08:13→18:34)
[2017-02-20] MEDS: LEVETIRACETAM 500 MG/5ML ORAL SOLN UD PEG SCH ×2 (11:42→22:24)
[2017-02-20] MEDS: SODIUM CHLOR 0.9% PF (SALINE LOCK) 10ML VIAL IV SCH ×2 (11:42→22:23)
[2017-02-20] MEDS: PANTOPRAZOLE 40 MG/10 ML VIAL IV SCH (11:43)
[2017-02-20 12:00] VITALS: BP 119/73
[2017-02-20] MEDS: LINEZOLID 600MG/300ML 300 ML IV SCH ×2 (14:53→22:12)
[2017-02-20 17:00] VITALS: BP 112/75
[2017-02-20 22:00] VITALS: BP 125/74
[2017-02-20] MEDS: PHENYTOIN 100 MG/4 ML SUSP PEG SCH (22:24)
[2017-02-21] MEDS: PIPERACILLIN-TAZOB 3.375GM 50 ML IV SCH ×4 (04:53→23:11)
[2017-02-21 05:00] VITALS: BP 109/66
[2017-02-21] MEDS: FREE WATER GT SCH ×4 (06:24→18:03)
[2017-02-21] MEDS: ALBUTEROL SULF 2.5 MG/0.5ML(0.5%) NEB SOLN NEB SCH ×4 (07:22→18:49)
[2017-02-21 08:00] VITALS: BP 111/70
[2017-02-21] MEDS: PANTOPRAZOLE 40 MG/10 ML VIAL IV SCH (11:32)
[2017-02-21] MEDS: PRO-STAT 64 30ML PEG SCH ×2 (11:32→18:04)
[2017-02-21 12:00] VITALS: BP 115/72
[2017-02-21] MEDS: LEVETIRACETAM 500 MG/5ML ORAL SOLN UD PEG SCH ×2 (13:44→21:32)
[2017-02-21] MEDS: LINEZOLID 600MG/300ML 300 ML IV SCH ×2 (15:30→21:32)
[2017-02-21 17:16] VITALS: BP 124/74
[2017-02-21] MEDS ORDERED: LOPERAMIDE HCL 2 MG CAP PO PRN (17:45)
[2017-02-21] MEDS: PHENYTOIN 100 MG/4 ML SUSP PEG SCH (21:32)
[2017-02-21 22:41] VITALS: BP 119/72
[2017-02-22] MEDS: FREE WATER GT SCH ×4 (00:03→18:57)
[2017-02-22 03:14] VITALS: BP 119/73
[2017-02-22] MEDS: PIPERACILLIN-TAZOB 3.375GM 50 ML IV SCH ×4 (03:43→23:16)
[2017-02-22 04:53] VITALS: BP 104/70
[2017-02-22] MEDS: ALBUTEROL SULF 2.5 MG/0.5ML(0.5%) NEB SOLN NEB SCH ×4 (05:46→19:07)
[2017-02-22 07:47] VITALS: BP 104/65
[2017-02-22 11:37] VITALS: BP 120/75
[2017-02-22] MEDS: PRO-STAT 64 30ML PEG SCH ×2 (15:19→18:57)
[2017-02-22] MEDS: PANTOPRAZOLE 40 MG/10 ML VIAL IV SCH (15:19)
[2017-02-22] MEDS: LINEZOLID 600MG/300ML 300 ML IV SCH ×2 (15:19→23:15)
[2017-02-22] MEDS: LEVETIRACETAM 500 MG/5ML ORAL SOLN UD PEG SCH ×2 (15:19→22:19)
[2017-02-22 16:02] VITALS: BP 121/77
[2017-02-22 22:00] VITALS: BP 130/76
[2017-02-22] MEDS: PHENYTOIN 100 MG/4 ML SUSP PEG SCH (22:19)
[2017-02-23] MEDS: PIPERACILLIN-TAZOB 3.375GM 50 ML IV SCH ×4 (04:11→22:05)
[2017-02-23 05:39] VITALS: BP 102/65
[2017-02-23] MEDS: ALBUTEROL SULF 2.5 MG/0.5ML(0.5%) NEB SOLN NEB SCH ×4 (05:43→17:08)
[2017-02-23] MEDS: FREE WATER GT SCH ×5 (06:00→23:56)
[2017-02-23 08:29] VITALS: BP 119/75
[2017-02-23] MEDS: LINEZOLID 600MG/300ML 300 ML IV SCH ×2 (09:47→22:03)
[2017-02-23] MEDS: PRO-STAT 64 30ML PEG SCH ×2 (09:47→22:05)
[2017-02-23] MEDS: PANTOPRAZOLE 40 MG/10 ML VIAL IV SCH (09:47)
[2017-02-23] MEDS: LEVETIRACETAM 500 MG/5ML ORAL SOLN UD PEG SCH ×2 (09:48→22:04)
[2017-02-23 12:42] VITALS: BP 126/74
[2017-02-23] MEDS ORDERED: ASCORBIC ACID 500 MG TAB PO ONE (15:15)
[2017-02-23] MEDS ORDERED: MULTIPLE VITAMINS W/ MINERALS TAB PO ONE (15:15)
[2017-02-23 22:00] VITALS: BP 122/71
[2017-02-23] MEDS: PHENYTOIN 100 MG/4 ML SUSP PEG SCH (22:03)
[2017-02-23] MEDS: ASCORBIC ACID 500 MG TAB PO SCH (22:04)
[2017-02-24] MEDS: PIPERACILLIN-TAZOB 3.375GM 50 ML IV SCH ×4 (03:43→22:21)
[2017-02-24 05:00] VITALS: BP 114/70
[2017-02-24] MEDS: FREE WATER GT SCH ×3 (05:47→18:06)
[2017-02-24] MEDS: ALBUTEROL SULF 2.5 MG/0.5ML(0.5%) NEB SOLN NEB SCH ×4 (05:57→18:25)
[2017-02-24] MEDS: PANTOPRAZOLE 40 MG/10 ML VIAL IV SCH (08:55)
[2017-02-24] MEDS: ASCORBIC ACID 500 MG TAB PO SCH ×2 (08:55→22:21)
[2017-02-24] MEDS: PRO-STAT 64 30ML PEG SCH ×2 (08:55→18:06)
[2017-02-24] MEDS: MULTIPLE VITAMINS W/ MINERALS TAB PO SCH (08:56)
[2017-02-24] MEDS: LEVETIRACETAM 500 MG/5ML ORAL SOLN UD PEG SCH ×2 (08:56→22:21)
[2017-02-24 09:46] VITALS: BP 108/67
[2017-02-24] MEDS: LINEZOLID 600MG/300ML 300 ML IV SCH ×2 (10:53→22:21)
[2017-02-24 14:28] VITALS: BP 108/67
[2017-02-24 16:50] VITALS: BP 128/79
[2017-02-24 21:54] VITALS: BP 116/65
[2017-02-24] MEDS: PHENYTOIN 100 MG/4 ML SUSP PEG SCH (22:21)
[2017-02-24 23:53] VITALS: BP 116/65
[2017-02-25] MEDS: FREE WATER GT SCH ×4 (00:06→18:23)
[2017-02-25] MEDS: PIPERACILLIN-TAZOB 3.375GM 50 ML IV SCH ×4 (04:00→22:02)
[2017-02-25 04:47] VITALS: BP 123/69
[2017-02-25] MEDS: ALBUTEROL SULF 2.5 MG/0.5ML(0.5%) NEB SOLN NEB SCH ×4 (05:49→20:26)
[2017-02-25 07:15] LABS: Red Blood Cells 3.51 10^6/uL (4.5-5.90)
[2017-02-25 07:18] LABS: Hematocrit 31.6 % (41.0-53.0); Hemoglobin 10.9 g/dL (13.5-17.5); Mean Corpuscular Hemoglobin 31.2 pg (28.0-32.0); Mean Corpuscular Hgb Conc. 34.6 g/dL (32.0-36.0); Mean Corpuscular Volume 89.9 fL (80.0-100.0); Platelet Count (auto) 222 10^3/uL (140-450); Red Cell Distribution Width 17.1 % (11.8-14.3)
[2017-02-25 07:40] LABS: Band Neutrophils % (manual) 0; Basophils % (manual) 0 (0.0-2.0); Blast Cells 0; Metamyelocytes % 0; Myelocytes % 0; Promyelocytes % 0; Reactive Lymphocytes 0; White Blood Cell 1.1 10^3/uL (4.4-10.8)
[2017-02-25 08:40] VITALS: BP 106/68
[2017-02-25] MEDS: PANTOPRAZOLE 40 MG/10 ML VIAL IV SCH (11:29)
[2017-02-25] MEDS: PRO-STAT 64 30ML PEG SCH ×2 (11:29→18:23)
[2017-02-25] MEDS: LEVETIRACETAM 500 MG/5ML ORAL SOLN UD PEG SCH ×2 (11:29→23:58)
[2017-02-25] MEDS: MULTIPLE VITAMINS W/ MINERALS TAB PO SCH (11:29)
[2017-02-25 11:46] VITALS: BP 122/80
[2017-02-25 13:20] LABS: Eosinophils % (manual) 3 (0-7); Lymphocytes % (manual) 69 (10.0-50.0); Monocytes % (manual) 6 (0-12)
[2017-02-25] MEDS: LINEZOLID 600MG/300ML 300 ML IV SCH ×2 (13:50→22:03)
[2017-02-25] MEDS: ASCORBIC ACID 500 MG TAB PO SCH ×2 (13:50→22:03)
[2017-02-25 16:23] VITALS: BP 110/70
[2017-02-25 22:00] VITALS: BP 126/78
[2017-02-25] MEDS: PHENYTOIN 100 MG/4 ML SUSP PEG SCH (22:03)
[2017-02-26] MEDS: FREE WATER GT SCH ×4 (00:22→18:47)
[2017-02-26] MEDS: PIPERACILLIN-TAZOB 3.375GM 50 ML IV SCH ×4 (04:11→22:46)
[2017-02-26 04:55] VITALS: BP 115/76
[2017-02-26] MEDS: ALBUTEROL SULF 2.5 MG/0.5ML(0.5%) NEB SOLN NEB SCH ×4 (05:33→19:10)
[2017-02-26] MEDS: PRO-STAT 64 30ML PEG SCH ×2 (07:46→18:47)
[2017-02-26 08:11] VITALS: BP 108/68
[2017-02-26] MEDS: LEVETIRACETAM 500 MG/5ML ORAL SOLN UD PEG SCH ×2 (10:00→22:47)
[2017-02-26] MEDS: LINEZOLID 600MG/300ML 300 ML IV SCH ×2 (10:20→22:46)
[2017-02-26] MEDS: MULTIPLE VITAMINS W/ MINERALS TAB PO SCH (10:20)
[2017-02-26] MEDS: PANTOPRAZOLE 40 MG/10 ML VIAL IV SCH (10:20)
[2017-02-26] MEDS: ASCORBIC ACID 500 MG TAB PO SCH ×2 (10:21→22:46)
[2017-02-26 13:58] VITALS: BP 100/58
[2017-02-26 17:14] VITALS: BP 98/70
[2017-02-26 21:43] VITALS: BP 108/67
[2017-02-26] MEDS: PHENYTOIN 100 MG/4 ML SUSP PEG SCH (22:46)
[2017-02-27] MEDS: PIPERACILLIN-TAZOB 3.375GM 50 ML IV SCH ×4 (04:00→22:11)
[2017-02-27] MEDS: FREE WATER GT SCH ×4 (06:00→18:34)
[2017-02-27 06:02] VITALS: BP 100/61
[2017-02-27] MEDS: ALBUTEROL SULF 2.5 MG/0.5ML(0.5%) NEB SOLN NEB SCH ×4 (07:24→18:37)
[2017-02-27 09:00] VITALS: BP 100/69
[2017-02-27] MEDS: MULTIPLE VITAMINS W/ MINERALS TAB PO SCH (10:06)
[2017-02-27] MEDS: LINEZOLID 600MG/300ML 300 ML IV SCH ×2 (10:06→22:10)
[2017-02-27] MEDS: PANTOPRAZOLE 40 MG/10 ML VIAL IV SCH (10:06)
[2017-02-27] MEDS: ASCORBIC ACID 500 MG TAB PO SCH ×2 (10:06→22:10)
[2017-02-27] MEDS: LEVETIRACETAM 500 MG/5ML ORAL SOLN UD PEG SCH ×2 (10:08→22:10)
[2017-02-27] MEDS: PRO-STAT 64 30ML PEG SCH ×2 (10:15→18:34)
[2017-02-27 13:00] VITALS: BP 124/86
[2017-02-27 17:00] VITALS: BP 125/78
[2017-02-27 18:50] VITALS: BP 124/86
[2017-02-27] MEDS: PHENYTOIN 100 MG/4 ML SUSP PEG SCH (22:10)
[2017-02-27 22:14] VITALS: BP 104/65
[2017-02-28] MEDS: PIPERACILLIN-TAZOB 3.375GM 50 ML IV SCH ×4 (04:14→23:20)
[2017-02-28 04:38] VITALS: BP 99/65
[2017-02-28] MEDS: ALBUTEROL SULF 2.5 MG/0.5ML(0.5%) NEB SOLN NEB SCH (06:05)
[2017-02-28 09:00] VITALS: BP 112/74
[2017-02-28] MEDS: LINEZOLID 600MG/300ML 300 ML IV SCH (09:59)
[2017-02-28] MEDS: ASCORBIC ACID 500 MG TAB PO SCH ×2 (10:10→23:20)
[2017-02-28] MEDS: MULTIPLE VITAMINS W/ MINERALS TAB PO SCH (10:10)
[2017-02-28] MEDS: PANTOPRAZOLE 40 MG/10 ML VIAL IV SCH (10:10)
[2017-02-28] MEDS: LEVETIRACETAM 500 MG/5ML ORAL SOLN UD PEG SCH ×2 (10:30→23:20)
[2017-02-28] MEDS: PRO-STAT 64 30ML PEG SCH ×2 (10:30→18:39)
[2017-02-28 11:21] LABS: Urine Bacteria NONE SEEN /hpf (None Seen); Urine Blood 3+ /uL (Negative); Urine Specific Gravity 1.023 (1.001-1.035); Urine WBC 6 /hpf (0 - 3)
[2017-02-28 13:00] VITALS: BP 112/75
[2017-02-28 17:00] VITALS: BP 109/69
[2017-02-28 22:14] VITALS: BP 127/83
[2017-02-28] MEDS: PHENYTOIN 100 MG/4 ML SUSP PEG SCH (23:20)
[2017-03-01] MEDS: LINEZOLID 600MG/300ML 300 ML IV SCH ×3 (00:39→22:28)
[2017-03-01 04:16] VITALS: BP 106/69
[2017-03-01] MEDS: PIPERACILLIN-TAZOB 3.375GM 50 ML IV SCH ×4 (04:51→20:22)
[2017-03-01] MEDS: PRO-STAT 64 30ML PEG SCH ×2 (08:44→17:26)
[2017-03-01 08:45] VITALS: BP 116/82
[2017-03-01] MEDS: PANTOPRAZOLE 40 MG/10 ML VIAL IV SCH (09:59)
[2017-03-01] MEDS: ASCORBIC ACID 500 MG TAB PO SCH ×2 (10:00→21:53)
[2017-03-01] MEDS: MULTIPLE VITAMINS W/ MINERALS TAB PO SCH (10:00)
[2017-03-01] MEDS: LEVETIRACETAM 500 MG/5ML ORAL SOLN UD PEG SCH ×2 (10:00→21:53)
[2017-03-01 12:00] VITALS: BP 114/74
[2017-03-01 12:29] LABS: Hematocrit 31.5 % (41.0-53.0); Hemoglobin 10.9 g/dL (13.5-17.5); Mean Corpuscular Hgb Conc. 34.5 g/dL (32.0-36.0)
[2017-03-01 12:31] LABS: Mean Corpuscular Hemoglobin 31.1 pg (28.0-32.0); Mean Corpuscular Volume 90.2 fL (80.0-100.0); Platelet Count (auto) 152 10^3/uL (140-450); Red Blood Cells 3.49 10^6/uL (4.5-5.90); Red Cell Distribution Width 17.1 % (11.8-14.3)
[2017-03-01 12:39] LABS: Band Neutrophils % (manual) 0; Basophils % (manual) 0 (0.0-2.0); Blast Cells 0; Eosinophils % (manual) 0 (0-7); Metamyelocytes % 0; Myelocytes % 0; Promyelocytes % 0; Reactive Lymphocytes 0; White Blood Cell 1.1 10^3/uL (4.4-10.8)
[2017-03-01 15:46] LABS: Lymphocytes % (manual) 71 (10.0-50.0); Monocytes % (manual) 4 (0-12)
[2017-03-01 16:57] VITALS: BP 140/90
[2017-03-01 16:59] VITALS: BP 115/75
[2017-03-01] MEDS: PHENYTOIN 100 MG/4 ML SUSP PEG SCH (21:53)
[2017-03-01 22:10] VITALS: BP 120/70
[2017-03-02] MEDS: PIPERACILLIN-TAZOB 3.375GM 50 ML IV SCH ×4 (03:51→21:17)
[2017-03-02 04:22] VITALS: BP 112/73
[2017-03-02] MEDS: PRO-STAT 64 30ML PEG SCH (07:51)
[2017-03-02 08:03] VITALS: BP 115/73
[2017-03-02] MEDS: PANTOPRAZOLE 40 MG/10 ML VIAL IV SCH (09:35)
[2017-03-02] MEDS: LEVETIRACETAM 500 MG/5ML ORAL SOLN UD PEG SCH (09:35)
[2017-03-02] MEDS: ASCORBIC ACID 500 MG TAB PO SCH ×2 (09:35→21:17)
[2017-03-02] MEDS: MULTIPLE VITAMINS W/ MINERALS TAB PO SCH (09:35)
[2017-03-02] MEDS: LINEZOLID 600MG/300ML 300 ML IV SCH ×2 (10:10→23:00)
[2017-03-02 13:11] VITALS: BP 116/75
[2017-03-02 16:50] VITALS: BP 120/75
[2017-03-02] MEDS: PHENYTOIN 100 MG/4 ML SUSP PEG SCH (21:17)
[2017-03-02 22:00] VITALS: BP 126/74
[2017-03-03 05:00] VITALS: BP 116/74
[2017-03-03 08:43] VITALS: BP 122/78
[2017-03-03] MEDS: LINEZOLID 600MG/300ML 300 ML IV SCH (10:25)
[2017-03-03] MEDS: ASCORBIC ACID 500 MG TAB PO SCH ×2 (10:26→22:31)
[2017-03-03] MEDS: PANTOPRAZOLE 40 MG/10 ML VIAL IV SCH (10:26)
[2017-03-03] MEDS: MULTIPLE VITAMINS W/ MINERALS TAB PO SCH (10:26)
[2017-03-03 12:07] VITALS: BP 129/76
[2017-03-03] MEDS ORDERED: LOPERAMIDE 2 MG/10ml ORAL soln GT PRN (15:30)
[2017-03-03 16:26] VITALS: BP 120/72
[2017-03-03] MEDS: Isosource 1.5 Cal 1 Liter GT SCH (17:30)
[2017-03-03 22:00] VITALS: BP 121/66
[2017-03-04 05:00] VITALS: BP 122/70
[2017-03-04 08:21] VITALS: BP 123/76
[2017-03-04] MEDS: MULTIPLE VITAMINS W/ MINERALS TAB PO SCH (10:40)
[2017-03-04] MEDS: ASCORBIC ACID 500 MG TAB PO SCH ×2 (10:40→21:12)
[2017-03-04 12:59] VITALS: BP 133/80
[2017-03-04 17:00] VITALS: BP 95/65
[2017-03-04 17:04] VITALS: BP 117/75
[2017-03-04] MEDS: Isosource 1.5 Cal 1 Liter GT SCH (19:23)
[2017-03-04 22:16] VITALS: BP 131/76
[2017-03-05 05:29] VITALS: BP 118/77
[2017-03-05 09:09] VITALS: BP 123/74
[2017-03-05] MEDS: MULTIPLE VITAMINS W/ MINERALS TAB PO SCH (10:16)
[2017-03-05] MEDS: ASCORBIC ACID 500 MG TAB PO SCH ×2 (10:16→21:23)
[2017-03-05 11:57] VITALS: BP 108/72
[2017-03-05 23:15] VITALS: BP 108/68
[2017-03-06 05:22] VITALS: BP 107/73
[2017-03-06 07:29] VITALS: BP 104/64
[2017-03-06] MEDS: ASCORBIC ACID 500 MG TAB PO SCH ×2 (09:08→21:56)
[2017-03-06] MEDS: MULTIPLE VITAMINS W/ MINERALS TAB PO SCH (09:08)
[2017-03-06 11:43] VITALS: BP 98/62
[2017-03-06 16:32] VITALS: BP 101/67
[2017-03-06 23:14] VITALS: BP 124/78
[2017-03-07 06:10] VITALS: BP 108/69
[2017-03-07 07:32] VITALS: BP 105/61
[2017-03-07] MEDS: MULTIPLE VITAMINS W/ MINERALS TAB PO SCH (10:57)
[2017-03-07] MEDS: ASCORBIC ACID 500 MG TAB PO SCH ×2 (10:57→22:05)
[2017-03-07 12:08] VITALS: BP 129/71
[2017-03-07 16:41] VITALS: BP 120/64
[2017-03-07 22:00] VITALS: BP 121/73
[2017-03-08 05:00] VITALS: BP 117/72
[2017-03-08] MEDS: MULTIPLE VITAMINS W/ MINERALS TAB PO SCH (09:02)
[2017-03-08] MEDS: ASCORBIC ACID 500 MG TAB PO SCH ×2 (09:02→22:22)
[2017-03-08 09:03] VITALS: BP 123/80
[2017-03-08 11:52] VITALS: BP 112/71
[2017-03-08 12:51] LABS: Hemoglobin 10.6 g/dL (13.5-17.5); Red Cell Distribution Width 17.1 % (11.8-14.3)
[2017-03-08 12:55] LABS: Hematocrit 30.4 % (41.0-53.0); Mean Corpuscular Hemoglobin 31.5 pg (28.0-32.0); Mean Corpuscular Hgb Conc. 34.9 g/dL (32.0-36.0); Mean Corpuscular Volume 90.2 fL (80.0-100.0); Platelet Count (auto) 122 10^3/uL (140-450); Red Blood Cells 3.37 10^6/uL (4.5-5.90)
[2017-03-08 13:08] LABS: Band Neutrophils % (manual) 0; Basophils % (manual) 0 (0.0-2.0); Blast Cells 0; Metamyelocytes % 0; Myelocytes % 0; Promyelocytes % 0; Reactive Lymphocytes 0
[2017-03-08 13:18] LABS: White Blood Cell 1.1 10^3/uL (4.4-10.8)
[2017-03-08 14:24] LABS: Lymphocytes % (manual) 54 (10.0-50.0)
[2017-03-08 14:25] LABS: Eosinophils % (manual) 3 (0-7); Monocytes % (manual) 11 (0-12)
[2017-03-09 05:00] VITALS: BP 121/75
[2017-03-09 09:00] VITALS: BP 110/57
[2017-03-09] MEDS: MULTIPLE VITAMINS W/ MINERALS TAB PO SCH (10:12)
[2017-03-09] MEDS: ASCORBIC ACID 500 MG TAB PO SCH ×2 (10:12→21:40)
[2017-03-09 12:25] VITALS: BP 111/60
[2017-03-09 17:01] VITALS: BP 106/62
[2017-03-09 21:29] VITALS: BP 112/74
[2017-03-10 04:28] VITALS: BP 118/70
[2017-03-10 09:00] VITALS: BP 132/80
[2017-03-10] MEDS: MULTIPLE VITAMINS W/ MINERALS TAB PO SCH (09:40)
[2017-03-10] MEDS: ASCORBIC ACID 500 MG TAB PO SCH ×2 (09:40→21:38)
[2017-03-10 13:00] VITALS: BP 121/76
[2017-03-10 17:00] VITALS: BP 127/80
[2017-03-10 22:00] VITALS: BP 129/78
[2017-03-11 05:00] VITALS: BP 120/78
[2017-03-11 09:00] VITALS: BP 131/86
[2017-03-11] MEDS: MULTIPLE VITAMINS W/ MINERALS TAB PO SCH (09:36)
[2017-03-11] MEDS: ASCORBIC ACID 500 MG TAB PO SCH ×2 (09:36→22:53)
[2017-03-11 13:00] VITALS: BP 120/71
[2017-03-11 17:00] VITALS: BP 119/72
[2017-03-11 22:00] VITALS: BP 139/66
[2017-03-12 06:09] VITALS: BP 113/63
[2017-03-12 08:30] VITALS: BP 115/63
[2017-03-12] MEDS: ASCORBIC ACID 500 MG TAB PO SCH ×2 (09:56→21:37)
[2017-03-12] MEDS: MULTIPLE VITAMINS W/ MINERALS TAB PO SCH (09:56)
[2017-03-12 13:00] VITALS: BP 117/78
[2017-03-12 17:49] VITALS: BP 121/77
[2017-03-12 22:00] VITALS: BP 119/68
[2017-03-13 04:37] VITALS: BP 112/62
[2017-03-13 09:00] VITALS: BP 100/65
[2017-03-13] MEDS: MULTIPLE VITAMINS W/ MINERALS TAB PO SCH (09:49)
[2017-03-13] MEDS: ASCORBIC ACID 500 MG TAB PO SCH ×2 (09:49→22:19)
[2017-03-13 13:00] VITALS: BP 117/72
[2017-03-13 16:56] VITALS: BP 110/68
[2017-03-13 22:22] VITALS: BP 119/78
[2017-03-14 05:07] VITALS: BP 109/68
[2017-03-14 08:57] LABS: Hemoglobin 11.1 g/dL (13.5-17.5)
[2017-03-14 08:59] LABS: Hematocrit 32.6 % (41.0-53.0); Mean Corpuscular Hemoglobin 31.5 pg (28.0-32.0); Mean Corpuscular Hgb Conc. 34.1 g/dL (32.0-36.0); Mean Corpuscular Volume 92.3 fL (80.0-100.0); Platelet Count (auto) 145 10^3/uL (140-450); Red Blood Cells 3.53 10^6/uL (4.5-5.90)
[2017-03-14 09:00] VITALS: BP 112/86
[2017-03-14 09:10] LABS: Red Cell Distribution Width 21.1 % (11.8-14.3)
[2017-03-14 09:13] LABS: Band Neutrophils % (manual) 0; Basophils % (manual) 0 (0.0-2.0); Blast Cells 0; Metamyelocytes % 0; Myelocytes % 0; Promyelocytes % 0; Reactive Lymphocytes 0
[2017-03-14 09:27] LABS: Eosinophils % (manual) 8 (0-7); Lymphocytes % (manual) 69 (10.0-50.0); Monocytes % (manual) 3 (0-12)
[2017-03-14] MEDS: MULTIPLE VITAMINS W/ MINERALS TAB PO SCH (10:56)
[2017-03-14] MEDS: ASCORBIC ACID 500 MG TAB PO SCH ×2 (10:56→22:27)
[2017-03-14 13:00] VITALS: BP 113/71
[2017-03-14 17:00] VITALS: BP 117/74
[2017-03-14 21:50] VITALS: BP 117/74
[2017-03-15 05:08] VITALS: BP 111/69
[2017-03-15 09:01] VITALS: BP 107/73
[2017-03-15] MEDS: ASCORBIC ACID 500 MG TAB PO SCH ×2 (10:54→22:10)
[2017-03-15] MEDS: MULTIPLE VITAMINS W/ MINERALS TAB PO SCH (10:54)
[2017-03-15 13:00] VITALS: BP 117/74
[2017-03-15 16:45] VITALS: BP 120/78
[2017-03-15 22:00] VITALS: BP 118/75
[2017-03-16 05:00] VITALS: BP 108/74
[2017-03-16 08:13] VITALS: BP 112/75
[2017-03-16] MEDS: MULTIPLE VITAMINS W/ MINERALS TAB PO SCH (09:44)
[2017-03-16] MEDS: ASCORBIC ACID 500 MG TAB PO SCH ×2 (09:44→23:10)
[2017-03-16 16:25] VITALS: BP 118/74
[2017-03-16 22:00] VITALS: BP 120/78
[2017-03-17 05:00] VITALS: BP 114/89
[2017-03-17] MEDS: ASCORBIC ACID 500 MG TAB PO SCH ×2 (09:19→22:00)
[2017-03-17] MEDS: MULTIPLE VITAMINS W/ MINERALS TAB PO SCH (09:19)
[2017-03-17 18:29] VITALS: BP 114/71
[2017-03-17 22:00] VITALS: BP 114/76
[2017-03-18 05:00] VITALS: BP 98/61
[2017-03-18 09:00] VITALS: BP 99/70
[2017-03-18] MEDS: MULTIPLE VITAMINS W/ MINERALS TAB PO SCH (10:04)
[2017-03-18] MEDS: ASCORBIC ACID 500 MG TAB PO SCH ×2 (10:05→21:36)
[2017-03-18] MEDS: Isosource 1.5 Cal 1 Liter GT SCH (10:05)
[2017-03-18 13:00] VITALS: BP 104/71
[2017-03-18 17:00] VITALS: BP 112/77
[2017-03-18 22:00] VITALS: BP_SYST 112; BP_SYST 119; BP_DIAS 70; BP_DIAS 78
[2017-03-19 05:00] VITALS: BP 112/70
[2017-03-19] MEDS: ASCORBIC ACID 500 MG TAB PO SCH ×2 (11:30→21:31)
[2017-03-19] MEDS: MULTIPLE VITAMINS W/ MINERALS TAB PO SCH (11:30)
[2017-03-19 21:41] VITALS: BP 115/74
[2017-03-20 05:11] VITALS: BP 120/74
[2017-03-20 08:54] VITALS: BP 141/88
[2017-03-20] MEDS: ASCORBIC ACID 500 MG TAB PO SCH ×2 (09:48→22:16)
[2017-03-20] MEDS: MULTIPLE VITAMINS W/ MINERALS TAB PO SCH (09:48)
[2017-03-20 13:00] VITALS: BP 120/78
[2017-03-20 17:00] VITALS: BP 114/71
[2017-03-20 22:00] VITALS: BP 134/80
[2017-03-20] MEDS: Isosource 1.5 Cal 1 Liter GT SCH (22:16)
[2017-03-21 05:00] VITALS: BP 127/76
[2017-03-21 09:00] VITALS: BP 115/76
[2017-03-21] MEDS: MULTIPLE VITAMINS W/ MINERALS TAB PO SCH (10:20)
[2017-03-21] MEDS: ASCORBIC ACID 500 MG TAB PO SCH ×2 (10:22→22:37)
[2017-03-21 13:00] VITALS: BP 143/88
[2017-03-21] MEDS: FREE WATER GT SCH ×3 (13:35→22:36)
[2017-03-21 14:48] LABS: Hemoglobin 11.8 g/dL (13.5-17.5)
[2017-03-21 14:50] LABS: Hematocrit 33.9 % (41.0-53.0); Mean Corpuscular Hemoglobin 32.4 pg (28.0-32.0); Mean Corpuscular Hgb Conc. 34.8 g/dL (32.0-36.0); Mean Corpuscular Volume 93.1 fL (80.0-100.0); Platelet Count (auto) 130 10^3/uL (140-450); Red Blood Cells 3.64 10^6/uL (4.5-5.90)
[2017-03-21 15:13] LABS: Red Cell Distribution Width 21.3 % (11.8-14.3)
[2017-03-21 15:16] LABS: Band Neutrophils % (manual) 0; Basophils % (manual) 0 (0.0-2.0); Blast Cells 0; Metamyelocytes % 0; Myelocytes % 0; Promyelocytes % 0; Reactive Lymphocytes 0; White Blood Cell 1.7 10^3/uL (4.4-10.8)
[2017-03-21 16:28] VITALS: BP 120/78
[2017-03-21 18:08] LABS: Eosinophils % (manual) 1 (0-7); Lymphocytes % (manual) 78 (10.0-50.0); Monocytes % (manual) 3 (0-12)
[2017-03-21 22:00] VITALS: BP 122/75
[2017-03-21] MEDS: Isosource 1.5 Cal 1 Liter GT SCH (22:37)
[2017-03-22 05:00] VITALS: BP 119/76
[2017-03-22] MEDS: FREE WATER GT SCH ×4 (05:39→23:56)
[2017-03-22 09:00] VITALS: BP 136/86
[2017-03-22] MEDS: MULTIPLE VITAMINS W/ MINERALS TAB PO SCH (09:34)
[2017-03-22] MEDS: ASCORBIC ACID 500 MG TAB PO SCH ×2 (09:34→21:51)
[2017-03-22 13:00] VITALS: BP 112/77
[2017-03-22 16:47] VITALS: BP 114/88
[2017-03-22 22:01] VITALS: BP 120/78
[2017-03-23 04:14] VITALS: BP 108/68
[2017-03-23] MEDS: FREE WATER GT SCH (06:53)
[2017-03-23 08:58] VITALS: BP 107/77
[2017-03-23] MEDS: MULTIPLE VITAMINS W/ MINERALS TAB PO SCH (10:23)
[2017-03-23] MEDS: ASCORBIC ACID 500 MG TAB PO SCH (10:23)
[2017-03-23 11:26] VITALS: BP 145/102
[2017-03-23 11:32] VITALS: BP 125/72
== END 2017-03-23 15:25 | DRG 720 ==
LOC: ER 11:41 → TELE 11:42 → TELE-EAST 20:40 → ICU WEST 02-01 09:55 → CENTRAL 02-05 22:47 → WEST WING 03-09 00:17
PROVIDERS: ADMIT Internal Medicine; ATTEND Internal Medicine Pulmonary Disease
PROC: 5A1955Z Respiratory Ventilation, Greater than 96 Consecutive Hours (ICD-10-PCS; principal; 2017-01-30)
PROC: 0BH17EZ Insertion of Endotracheal Airway into Trachea, Via Natural or Artificial Opening (ICD-10-PCS; 2017-01-30)
PROC: 02HV33Z Insertion of Infusion Device into Superior Vena Cava, Percutaneous Approach (ICD-10-PCS; 2017-02-02)
PROC: B5181ZA Fluoroscopy of Superior Vena Cava using Low Osmolar Contrast, Guidance (ICD-10-PCS; 2017-02-02)
DX: A41.81 Sepsis due to Enterococcus (principal); J96.01 Acute respiratory failure with hypoxia; J69.0 Pneumonitis due to inhalation of food and vomit; G93.41 Metabolic encephalopathy; E43 Unspecified severe protein-calorie malnutrition; Z93.0 Tracheostomy status; F03.90 Unspecified dementia, unspecified severity, without behavioral disturbance, psychotic disturbance, mood disturbance, and anxiety; Z99.81 Dependence on supplemental oxygen; E86.1 Hypovolemia; G40.801 Other epilepsy, not intractable, with status epilepticus; R13.10 Dysphagia, unspecified; E83.51 Hypocalcemia; E87.1 Hypo-osmolality and hyponatremia; Z93.1 Gastrostomy status; Z68.23 Body mass index [BMI] 23.0-23.9, adult; B18.2 Chronic viral hepatitis C; D63.8 Anemia in other chronic diseases classified elsewhere; E03.9 Hypothyroidism, unspecified; E83.52 Hypercalcemia; E87.6 Hypokalemia; F09 Unspecified mental disorder due to known physiological condition; G40.901 Epilepsy, unspecified, not intractable, with status epilepticus; L89.90 Pressure ulcer of unspecified site, unspecified stage; N39.0 Urinary tract infection, site not specified; R31.0 Gross hematuria; R47.01 Aphasia; Z66 Do not resuscitate; Z86.73 Personal history of transient ischemic attack (TIA), and cerebral infarction without residual deficits
CPT/HCPCS: 36415; 36569; 36600; 70450; 71010; 80048; 80053; 80074; 80185; 80202; 80307; 80320; 81001; 82607; 82805; 82962; 83605; 83615; 83735; 84436; 84443; 85007; 85025; 85027; 85048; 85610; 86038; 86703; 87040; 87070; 87077; 87081; 87086; 87186; 87205; 87493; 94002; 94003; 94640; 94761; 96365; 96375; 97110; 97116; 97163; 97530; A4565; C9113; C9254; J0330; J1442; J2001; J2250; J2543; J2704; J3010; J3490; J7060